=== PATIENT | male | born 1990 | race African-American/Black ===

== ENCOUNTER 2021-11-10 17:49 | Emergency (ER) | payer OTHER ==
[~2021-11-10] VITALS: Ht 175.3 cm; Wt 100.0 kg
[2021-11-10 18:08] VITALS: BP 125/92
[2021-11-10] MEDS ORDERED: METF-873 PO (18:15)
[2021-11-10] MEDS ORDERED: KETOROLAC 30MG/ML VIAL IV STA (19:17)
[2021-11-10] MEDS ORDERED: SODIUM CHLORIDE 0.9% 1,000 ML IV ONE (19:30)
[2021-11-10 20:17] LABS: BASOPHILS % 0.4 % (0.0-2.0); EOSINOPHILS % 0.3 % (0.0-5.0); HEMATOCRIT. 46.6 % (42.0-52.0); HEMOGLOBIN. 15.4 g/dL (14.0-18.0); LYMPHOCYTES % 10.9 % (20.0-50.0); MEAN CORPUSCULAR VOLUME 84.9 fL (80.0-94.0); MEAN PLATELET VOLUME 9.6 fl (7.4-10.4); NEUTROPHILS % 83.4 % (40.0-76.0); PLATELET 223 x1000/uL (130-400); RED BLOOD CELL COUNT 5.49 mill/uL (4.7-6.1); RED CELL DISTRIBUTION WIDTH 13.6 % (11.6-14.6)
[2021-11-10 20:24] LABS: CHLORIDE 103 mEq/L (98-107)
== END 2021-11-10 21:15 | disposition left against medical advice (07) ==
LOC: ER 17:49
DX: R10.84 Generalized abdominal pain (principal); R11.0 Nausea; U07.1 COVID-19; E11.9 Type 2 diabetes mellitus without complications
CPT/HCPCS: 36415; 80053; 85025; 99283; J7030